=== PATIENT | female | born 1985 | race Caucasian/White ===

== ENCOUNTER 2019-04-13 03:36 | Emergency (ER) | payer MEDICAID ==
[~2019-04-13] VITALS: Ht 172.7 cm; Wt 68.0 kg
[2019-04-13] MEDS ORDERED: TRAZODONE HCL50 MG PO (03:41)
[2019-04-13] MEDS ORDERED: PAXIL CR25 MG PO (03:42)
[2019-04-13] MEDS ORDERED: VISTARIL25 MG PO (03:43)
[2019-04-15] MEDS ORDERED: CHLORDIAZEPOXID25 MG PO (15:27)
[2019-04-15] MEDS ORDERED: ONDANSETRON ODT8 MG PO (15:27)
== END 2019-04-13 06:20 | disposition home or self-care (01) ==
LOC: ED 03:36 → EDBD 03:36 → ED 06:20
DX: T74.21XA Adult sexual abuse, confirmed, initial encounter (principal); M54.9 Dorsalgia, unspecified; Z79.899 Other long term (current) drug therapy
CPT/HCPCS: 84703; 96361; 96374; 99285-25; J0696; J1885; J7030